=== PATIENT | female | born 1980 | race Caucasian/White ===

== ENCOUNTER 2021-11-01 12:57 | Emergency (ER) | payer OTHER ==
[2021-11-01 13:07] VITALS: BP 125/77; PULSE 104; TEMP 99.2; BMI 43.9
[2021-11-01] MEDS ORDERED: KETOROLAC TROMETHAMINE 60 MG/2 ML VIAL IM ONE (14:37)
[2021-11-01] MEDS ORDERED: METHOCARBAMOL 500 MG TABLET PO ONE (14:37)
[2021-11-01] MEDS ORDERED: LIDOCAINE 5% TOPICAL PATCH TP ONE (14:37)
[2021-11-01] MEDS ORDERED: KETOROLAC TROMETHAMINE 30 MG/1 ML VIAL ONE (14:40)
[2021-11-01] MEDS ORDERED: LIDOCAINE 5% TOPICAL PATCH ONE (14:40)
[2021-11-01] MEDS ORDERED: METHOCARBAMOL 500 MG TABLET ONE (14:40)
[2021-11-01] MEDS ORDERED: LIDOCAINE PATCH REMOVAL MC ONE (22:00)
== END 2021-11-01 15:59 | disposition home or self-care (01) ==
LOC: JERFT 12:57
PROC: 3E0233Z Introduction of Anti-inflammatory into Muscle, Percutaneous Approach (ICD-10-PCS; principal; 2021-11-01)
DX: M54.42 Lumbago with sciatica, left side (principal)
CPT/HCPCS: 72100-TC-FY; 99284-25

== ENCOUNTER 2021-11-16 11:46 | Emergency (ER) | payer OTHER ==
[2021-11-16 12:30] VITALS: BP 125/80; PULSE 97; TEMP 98.2; BMI 40.9
[2021-11-16] MEDS ORDERED: GABAPENTIN 100 MG CAPSULE PO ONE (13:41)
[2021-11-16] MEDS ORDERED: GABAPENTIN 100 MG CAPSULE ONE (13:55)
[2021-11-16 14:22] LABS: BASO % 0.3 % (0-2.0); EOS % 1.2 % (0-4.5); HEMATOCRIT 32.2 % (32.4-45.2); HEMOGLOBIN 10.7 GM/dL (10.7-15.3); LYMPH % 13.6 % (8-40); MCHC 33.2 g/dl (32.0-36.0); MEAN CELL VOLUME 84.6 fl (80-96); MEAN PLT VOLUME 7.6 fl (7.5-11.1); MONO % 5.7 % (3.8-10.2); NEUT % 79.2 % (42.8-82.8); PLATELET COUNT 356 10^3/uL (134-434); RDW 13.9 % (11.6-15.6); WHITE BLOOD COUNT 12.2 K/mm3 (4.0-10.0)
[2021-11-16 14:44] LABS: ALBUMIN 2.5 g/dl (3.4-5.0); BLOOD UREA NITROGEN 8.4 mg/dL (7-18); CALCIUM 8.7 mg/dL (8.5-10.1); MAGNESIUM 1.8 mg/dL (1.8-2.4)
[2021-11-16 14:47] LABS: CREATININE 0.7 mg/dL (0.55-1.3)
[2021-11-16 14:49] LABS: BILIRUBIN,TOTAL 0.3 mg/dL (0.2-1); TOT PROT 6.6 g/dl (6.4-8.2)
== END 2021-11-16 15:44 | disposition home or self-care (01) ==
LOC: JER 11:46
DX: M79.10 Myalgia, unspecified site (principal)
CPT/HCPCS: 36415; 80053; 83735; 85025; 99283-25